=== PATIENT | female | born 1990 | race Caucasian/White ===

== ENCOUNTER 2016-12-26 11:04 | Outpatient (CLI) | payer OTHER ==
[~2016-12-26 11:04] MED LIST: PRENATA1 PO
== END 2016-12-26 23:00 ==
LOC: LAB SRH 11:04
DX: Z01.818 Encounter for other preprocedural examination (principal); Z01.812 Encounter for preprocedural laboratory examination; Z34.83 Encounter for supervision of other normal pregnancy, third trimester
CPT/HCPCS: 90001; 90004; 90074; 90155; 91004; 95059

== ENCOUNTER 2016-12-29 11:50 | Inpatient (IN) | payer OTHER ==
--- NOTE | 2016-12-23 11:45 | HISTORY AND PHYSICAL ---
ADMITTED: 12/29/2016 CHIEF COMPLAINT: 1. Previous section, for repeat section. HISTORY OF PRESENT ILLNESS: The patient has been routinely visiting our clinic and has normal progression and has a problem list that generally is normal. She desires repeat section and possible scar revision and tubal ligation was offered and declined. MEDICAL/SURGICAL HISTORY: Menstrual history: Age 15. Contraception History: Noncontributory. Negative. Obstetric History: In 2010 40 weeks 5 days, section of 7 pound , male. Surgical history: section. Medical history: Negative. MEDICATIONS: 1. vitamins. ALLERGIES: 1. NONE. SOCIAL HISTORY: Negative smoking, drinking, drugs. FAMILY HISTORY: None, mother, father or siblings. REVIEW OF SYSTEMS: This patient is alert and oriented x3, general systems normal. Genitourinary: Purpose for surgery. Cardiovascular: No shortness of breath or chest pain. Gastrointestinal: Daily bowel movements. PHYSICAL EXAMINATION: VITAL SIGNS: Normal, 5 feet 2 inches. 162 pounds, 110/60, pulse and temperature normal. SKIN/HAIR/INTEGUMENT: Normal. HEENT: Grossly intact. BREASTS: Exam not done. LUNGS: Clear. HEART: Regular rate and rhythm. ABDOMEN: Fundal height 36 cm, consistent with dates. EXTREMITIES: No significant clubbing, cyanosis, erythema or edema. PELVIC/RECTAL: Deferred today. LAB/IMAGING: Pending. IMPRESSION: 1. Term , previous section, for repeat. PLAN: Repeat section. Informed consent, risks and benefits given to the patient. The patient understands and accepts. The possibility of blood loss, need for transfusion, infection, damage to pelvic and nonpelvic organs requiring additional surgery including intubation, ICU stay, coma, and .
[~2016-12-29] VITALS: Ht 157.5 cm; Wt 73.5 kg
[2016-12-29] VITALS (12 sets, daily range): BP systolic 99–125; BP diastolic 54–70
--- NOTE | 2016-12-29 19:28 | OPERATIVE REPORT ---
DATE OF SURGERY: 12/29/2016 SURGEON: Singh Altamirano MD GEODETIC ENGINEER: Sabine Cowan MD PREOPERATIVE DIAGNOSES: 1. Previous section at term, 39+ weeks, for repeat section 2. Scar revision discussed POSTOPERATIVE DIAGNOSES: 1. Previous section at term, 39+ weeks, for repeat section 2. Scar revision discussed 3. Delivered PROCEDURE PERFORMED: 1. Repeat section 2. Low transverse uterine section scar revision ANESTHESIA: Spinal; Anesthesiologist: Dr. Jaeger. COMPLICATIONS: None. CONDITION: Good. ESTIMATED BLOOD LOSS: 500 mL. FLUIDS: Normal. No blood. IMPLANTS/GRAFTS: No grafts, no implants. PATHOLOGY SPECIMEN: Placenta to discard. SURGICAL FINDINGS: Routine. SURGICAL TECHNIQUE: The patient was prepped and draped in the usual fashion. An adequate level of spinal was obtained. Time-out was performed. Procedure was performed in the usual fashion. Scalpel was used to go above and below 1 cm on each side of previous incision, through 1 cm of subcutaneous tissue with the Bovie after scalpel and initial incision. The fascia was cut laterally and superiorly and from the rectus in the midline. The parietal peritoneum was bluntly entered and stretched. The bladder blade was placed. Andres self-retaining retractor was placed. Bovie was used on the bladder flap. Parietal peritoneum then was used to incise 2-3 mm of uterine tissue. The clear fluid was reached. The bandage scissors then carried incision laterally and superiorly. The infant was then delivered from LOT position without difficulty or pressure pushing. The infant was approximately 6 pounds in size, active, crying on delivery. Good Apgars. Pediatrics, OB nurse and RT were in attendance. The placenta had cord blood collected. Placenta was manually massaged in its normal anatomic position out of the uterus. The uterus remained in the abdomen. The membranes were removed. The first suture of 0 poly was used running locking from [id number], it returned imbricating. Then there was good hemostasis noted. The Andres was removed. Remainder of the first suture was used to place a small approximation suture in the rectus to prevent diastasis recti. The fascia was then reapproximated with second layer of suture, 2 cm deep, 2 cm wide approximation without strangulation. Good hemostasis. The small amount of skin was reapproximated with omid to line the linea nigra. Good hemostasis. Sponge, needle, tape and instrument count was correct x2. The patient tolerated the procedure well and went to recovery room in good condition. At the time-out it was noted that the patient did receive 2 g of Ancef.
[2016-12-30 00:15] VITALS: BP 111/63
[2016-12-30 03:14] VITALS: BP 111/63
[2016-12-30 06:30] VITALS: BP 102/54
[2016-12-30 08:30] VITALS: BP 109/59
[2016-12-30 13:00] VITALS: BP 111/64
[2016-12-30] MEDS ORDERED: PERCOCET1 TA1 PO (13:24)
--- NOTE | 2016-12-30 13:26 | Provider's Discharge Care Plan ---
Problem, Goal, Plan Problem List 1. Post-operative pain Goals: Improve disease control Instructions: Follow up as needed
--- NOTE | 2016-12-30 13:26 | Provider's Discharge Care Plan ---
Problem, Goal, Plan Problem List 1. Post-operative pain Goals: Improve disease control Instructions: Follow up as needed
[2016-12-30 16:03] VITALS: BP 118/71
== END 2016-12-30 18:00 | disposition home or self-care (01) | DRG 540 ==
LOC: OB SRH 11:50 → U SRH 14:30 → OB SRH 12-30 18:00
PROVIDERS: ADMIT Obstetrics & Gynecology
PROC: 10D00Z1 Extraction of Products of Conception, Low, Open Approach (ICD-10-PCS; principal; 2016-12-29 14:30)
DX: O34.211 Maternal care for low transverse scar from previous cesarean delivery (principal); Z37.0 Single live birth; Z3A.39 39 weeks gestation of pregnancy
CPT/HCPCS: 40010; 50002; 60001; 83307; 83411; 83426; 83475; 83526; 84038; 90074; 91162; 91163